=== PATIENT | female | born 1955 | race Caucasian/White ===

== ENCOUNTER 2019-05-17 11:00 | Outpatient (CLI) | payer OTHER, SELFPAY ==
--- NOTE | 2019-05-17 11:23 | ECG_ITS ---
NAME OF STUDY: TREADMILL STRESS TEST INDICATION: Chest Pain, EXERCISE TREADMILL STRESS ORDERING PHYSICIAN: Unknown CLINICAL INFORMATION: Chest pain INTERPRETATION: 1. The patient exercised for 2 minutes and 26 seconds on a Kd protocol. H She reached a maximum heart rate of 168 beats per minute, which is 106 % of her maximum predicted heart rate. The test was stopped due to achieving the desired heart rate. 2. The baseline electrocardiogram reveals sinus tachycardia with nonspecific ST wave changes and a right ventricular conduction delay. 3. With exercise, there were no ST segment changes to suggest ischemia. 4. The resting blood pressure was 131/74. The maximum blood pressure was 190/112. 5. At maximum exercise, the patient achieved 4.6 METs with a rate pressure product of 306. 6. The patient experienced no chest pain or arrhythmias during the examination. CONCLUSION: 1. Normal exercise treadmill test. 2. Far below average exercise capacity for age. 3. Hypertensive blood pressure response to exercise. 4. Resting sinus tachycardia Electronically Signed On 05-17-2019 16:24:10 [employer] by Jourdan Baca M.D. [email or web address]
[2019-05-17 11:34] VITALS: BMI 30.7
[2019-05-17 11:46] VITALS: BP 197/61; PULSE 91
== END 2019-05-17 11:01 | disposition home or self-care (01) ==
LOC: CDL 11:06
PROVIDERS: Family Provider Nurse Practitioner Family; PCP Nurse Practitioner Family; Visit Provider Nurse Practitioner Family
DX: R07.9 Chest pain, unspecified (principal); R53.83 Other fatigue; R06.09 Other forms of dyspnea; R00.0 Tachycardia, unspecified
CPT/HCPCS: 93017

== ENCOUNTER 2022-08-22 14:15 | Outpatient (CLI) | payer BC, SELFPAY ==
--- NOTE | 2022-08-22 14:23 | MM_ITS ---
WS: [id number] BILATERAL 3D TOMOSYNTHESIS DIGITAL SCREENING MAMMOGRAPHY WITH CAD CLINICAL INFORMATION: SCREENING HISTORY: Screening mammogram. No current complaints. COMPARISON: None. 2020 TECHNIQUE: Bilateral CC and MLO views. FINDINGS: Scattered fibroglandular densities bilaterally. No suspicious focal mass, asymmetry, calcifications, or architectural distortion. No evidence of malignancy. Vascular calcification. Incidental punctate c alcifications. MM/[place] [id number] IMPRESSION: BI-RADS: 2-Benign FOLLOW UP: 1 Year Follow-up Recommend return to annual screening mammography.
== END 2022-08-22 14:16 | disposition home or self-care (01) ==
LOC: RAD 14:20
PROVIDERS: PCP Nurse Practitioner Family; Visit Provider Nurse Practitioner Family
DX: Z12.31 Encounter for screening mammogram for malignant neoplasm of breast (principal)
CPT/HCPCS: 77063; 77067